=== PATIENT | female | born 1935 | race Caucasian/White ===

== ENCOUNTER 2017-10-16 13:00 | Emergency (ER) | payer MEDICARE ==
--- NOTE | 2017-10-16 13:42 | EDM.PDOC ---
ED HPI GENERAL MEDICAL PROBLEM - General Chief Complaint: Syncope Stated Complaint: SICK SENT FROM [facility] Time Seen by Provider: 10/16/17 13:15 Source of Information: Reports: Patient, Other (Clinic reports) History Limitations: Reports: No Limitations - History of Present Illness INITIAL COMMENTS - FREE TEXT/NARRATIVE: Rita was sent over to the [facility] ED for assessment of a syncopal episode following multiple bouts of emeses about 4 am today. She awoke with nausea, and proceeded to vomit approximately 8 times of yellow colored emeses. There was no BRB or bile detected. She sat on the commode and felt lt headiness and was in and out of consciousness for approximately 5 minutes on the floor. She summoned family who subsequently brought her to the Clinic. Investigation noted a mild leukocyctosis, neg Troponin, neg BMP, and an ekg which noted some ST seg depressions, age unknown. She is currently asx. - Related Data Allergies Allergy/AdvReac Type Severity Reaction Status Date / Time No Known Allergies Allergy Verified 10/16/17 13:04 Home Meds: Home Meds Aspirin [Halfprin] 81 mg PO DAILY 10/16/17 [History] Calcium Carb/Vitamin D3/Vit K1 [Calcium + Vit D & K Chew] 1 each PO DAILY [History] Lisinopril/Hydrochlorothiazide [Lisinopril-Hctz 10-12.5 mg Tab] 1 each PO DAILY 10/16/17 [History] Omeprazole 40 mg PO DAILY 10/16/17 [History] Past Medical History HEENT History: Reports: Impaired Vision Cardiovascular History: Reports: Hypertension Respiratory History: Reports: None Gastrointestinal History: Reports: Pancreatitis 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: Musculoskeletal History: Reports: None Neurological History: Reports: None Psychiatric History: Reports: None Endocrine/Metabolic History: Reports: None Hematologic History: Reports: None Immunologic History: Reports: None Oncologic (Cancer) History: Reports: None Dermatologic History: Reports: None - Past Surgical History Cardiovascular Surgical History: Reports: None Respiratory Surgical History: Reports: None GI Surgical History: Reports: Cholecystectomy, Colonoscopy Female Surgical History: Reports: Section Endocrine Surgical History: Reports: None Musculoskeletal Surgical History: Reports: None Social & Family History - Tobacco Use Smoking Status *Q: Never Smoker - Caffeine Use Caffeine Use: Reports: Coffee - Recreational Drug Use Recreational Drug Use: No ED ROS GENERAL - Review of Systems Review Of Systems: See Below Constitutional: Reports: Decreased Appetite HEENT: Reports: No Symptoms Respiratory: Reports: No Symptoms Cardiovascular: Reports: No Symptoms Endocrine: Reports: No Symptoms GI/Abdominal: Reports: Nausea, Vomiting : Reports: No Symptoms Musculoskeletal: Reports: No Symptoms Skin: Reports: No Symptoms Neurological: Reports: Syncope Psychiatric: Reports: No Symptoms Hematologic/Lymphatic: Reports: No Symptoms Immunologic: Reports: No Symptoms - Physical Exam Exam: See Below Exam Limited By: No Limitations General Appearance: Alert, WD/WN, No Apparent Distress Eye Exam: Bilateral Eye: EOMI, Normal Inspection, PERRL Ears: Normal External Exam Nose: Normal Inspection Throat/Mouth: Normal Inspection, Normal Oropharynx Head Exam: Normocephalic Neck: Normal Inspection, Supple, Non-Tender Respiratory/Chest: Lungs Clear, Normal Breath Sounds, Chest Non-Tender Cardiovascular: Normal Peripheral Pulses, Regular Rate, Rhythm, No Murmur GI/Abdominal: Normal Bowel Sounds, Soft, Non-Tender, No Organomegaly, No Distention, No Mass (Female) Exam: Deferred Rectal (Female) Exam: Deferred Neuro Exam (Abbreviated): Alert, Oriented, CN II-XII Intact, Normal Cognition, No Motor/Sensory Deficits Back Exam: Normal Inspection Extremities: Normal Inspection Psychiatric: Normal Affect, Normal Mood Skin Exam: Warm, Dry, Intact Course - Vital Signs Text/Narrative:: A follow up EKG noted: NSR, no ST changes detected, borderline QT elongation; she was released home. Last Recorded V/S: Last Vital Signs Temp 36.8 C 10/16/17 13:15 Pulse 100 10/16/17 13:15 Resp 17 10/16/17 13:33 BP 127/93 H 10/16/17 13:33 Pulse Ox 99 10/16/17 13:33 - Orders/Labs/Meds Orders: Active Orders 24 hr Category Date Time Status EKG Documentation Completion [RC] ASDIRECTED Care 10/16/17 13:36 Ordered EKG 12 Lead [EK] Routine Ther 10/16/17 13:36 Ordered Departure - Departure Time of Disposition: 13:48 Disposition: Home, Self-Care 01 Condition: Good Clinical Impression: Nausea and vomiting Qualifiers: Vomiting type: unspecified Vomiting Intractability: unspecified Qualified Code( s): R11.2 - Nausea with vomiting, unspecified Syncope Qualifiers: Syncope type: unspecified Qualified Code(s): R55 - Syncope and collapse - Discharge Information Referrals: Mallika Correa, CASE LINER [Primary Care Provider] - - Problem List & Annotations (1) Nausea and vomiting SNOMED Code(s): 85229396 Code(s): R11.2 - NAUSEA WITH VOMITING, UNSPECIFIED Status: Acute Current Visit: Yes Annotation/Comment:: Probable gastritis which is improved. I suggested light diet, hydration, and rest. Qualifiers: Vomiting type: unspecified Vomiting Intractability: unspecified Qualified Code(s): R11.2 - Nausea with vomiting, unspecified (2) Syncope SNOMED Code(s): 436889220 Code(s): R55 - SYNCOPE AND COLLAPSE Status: Acute Current Visit: Yes Annotation/Comment:: Possible vasovagal syncope. She may return home, activty as tolerated, and no driving today. Qualifiers: Syncope type: unspecified Qualified Code(s): R55 - Syncope and collapse - Problem List Review Problem List Initiated/Reviewed/Updated: Yes - My Orders Last 24 Hours: My Active Orders 10/16/17 13:36 EKG Documentation Completion [RC] ASDIRECTED EKG 12 Lead [EK] Routine - Assessment/Plan Last 24 Hours: My Active Orders 10/16/17 13:36 EKG Documentation Completion [RC] ASDIRECTED EKG 12 Lead [EK] Routine Plan: Follow up with PCP if needed.
== END 2017-10-16 14:05 | disposition home or self-care (01) ==
LOC: FB.ED 13:00
DX: R55 Syncope and collapse (principal); R11.2 Nausea with vomiting, unspecified; I10 Essential (primary) hypertension; Z79.82 Long term (current) use of aspirin; Z79.899 Other long term (current) drug therapy
CPT/HCPCS: 93005; 93010; 99284

== ENCOUNTER 2020-03-02 12:59 | Inpatient (IN) | payer MEDICARE ==
--- NOTE | 2020-03-02 13:11 | EDM.PDOC ---
ED HPI GENERAL MEDICAL PROBLEM - General Stated Complaint: ABDOMINAL PAIN Time Seen by Provider: 03/02/20 13:08 Source of Information: Reports: Patient History Limitations: Reports: No Limitations - History of Present Illness INITIAL COMMENTS - FREE TEXT/NARRATIVE: 85-year-old female who reports that she was feeling well until approximately 10 AM today when she developed side of left sided abdominal pain with pain into her left back that was a crampy type pain that was associated with nausea and was worse with palpation. The pain has worsened with time and she has had 5-6 bowel movements since the pain began. The bowel movements initially were performed and have since become loose. There has been no blood in the bowel movements or dark stools. She currently rates the pain as an 8/10. It radiates from her left side of her abdomen into her back. She feels what cold. No fevers. No chills. She ate breakfast this morning without problems. She has had pain somewhat similar to this in the past that was associated with pancreatitis. Chest pain. No shortness of breath. No cough or nasal congestion. No sore throat. She states she had a COVID 19 test performed on Saturday of last week that was negative. There are no other associated signs or symptoms. There are no other modifying factors. 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 (see below) (Nothing) Left Abdomen Pain Score (Numeric/FACES): 8 - Related Data Allergies Allergy/AdvReac Type Severity Reaction Status Date / Time No Known Allergies Allergy Verified 03/02/20 13:22 Home Meds: Home Meds Aspirin [Halfprin] 81 mg PO DAILY 10/16/17 [History] Calcium Carb/Vitamin D3/Vit K1 [Calcium + Vit D & K Chew] 1 each PO DAILY [History] Lisinopril/Hydrochlorothiazide [Lisinopril-Hctz 10-12.5 mg Tab] 1 each PO DAILY 10/16/17 [History] Omeprazole 40 mg PO DAILY 10/16/17 [History] Past Medical History HEENT History: Reports: Impaired Vision Cardiovascular History: Reports: Hypertension Gastrointestinal History: Reports: Pancreatitis - Past Surgical History GI Surgical History: Reports: Cholecystectomy, Colonoscopy Female Surgical History: Reports: Section Endocrine Surgical History: Reports: None Musculoskeletal Surgical History: Reports: None Social & Family History - Tobacco Use Smoking Status *Q: Never Smoker - Caffeine Use Caffeine Use: Reports: Coffee - Alcohol Use Alcohol Use History: No - Living Situation & Occupation Occupation: Retired ED ROS GENERAL - Review of Systems Review Of Systems: See Below Constitutional: Reports: Weakness, Diaphoresis HEENT: Reports: No Symptoms Respiratory: Reports: No Symptoms Cardiovascular: Reports: No Symptoms GI/Abdominal: Reports: Abdominal Pain, Diarrhea, Nausea. Denies: Vomiting Musculoskeletal: Reports: Back Pain (Left back pain) Skin: Reports: Diaphoresis Neurological: Reports: No Symptoms Psychiatric: Reports: No Symptoms Hematologic/Lymphatic: Reports: No Symptoms Immunologic: Reports: No Symptoms ED EXAM, GI/ABD - Physical Exam Exam: See Below Exam Limited By: No Limitations General Appearance: Alert, WD/WN, Moderate Distress Eyes: Bilateral: Normal Appearance (Sclera are anicteric), EOMI Ears: Normal External Exam, Hearing Grossly Normal Nose: Normal Inspection, Normal Mucosa, No Blood Throat/Mouth: Normal Voice, No Airway Compromise, Other (Dry mucous membranes) Head: Atraumatic, Normocephalic Neck: Normal Inspection, Supple, Non-Tender, Full Range of Motion Respiratory/Chest: No Respiratory Distress, Lungs Clear, Normal Breath Sounds, No Accessory Muscle Use, Chest Non-Tender Cardiovascular: Normal Peripheral Pulses, Regular Rate, Rhythm, No Murmur GI/Abdominal Exam: Normal Bowel Sounds, Soft, No Mass, Pelvis Stable, Tender ( Markedly tender over the head and the left lower quadrant and left flank.). No : Rigid Back Exam: Normal Inspection, Other (Tender over the left mid back) Extremities: Normal Inspection, Normal Range of Motion, Non-Tender, No Pedal Edema, Normal Capillary Refill Neurological: Alert, Oriented, CN II-XII Intact, Normal Cognition, No Motor/ Sensory Deficits Skin Exam: Intact, Normal Color, No Rash, Diaphoretic (Slightly) EKG INTERPRETATION EKG Date: 03/02/20 Time: 14:54 Rhythm: NSR Rate (Beats/Min): 72 [place]: Normal P-Wave: Present QRS: Normal ST-T: Normal QT: Normal Comparison: Change From Previous EKG (Compared EKG performed on 10/16/2017, the T -wave abnormalities that were present at that time have resolved and the QT prolongation that was present at that time is no longer present now.) Course - Vital Signs Last Recorded V/S: Last Vital Signs Temp 36.7 C 03/02/20 14:06 Pulse 79 03/02/20 14:06 Resp 18 03/02/20 14:06 BP 146/62 H 03/02/20 14:06 Pulse Ox 100 03/02/20 14:06 - Orders/Labs/Meds Orders: Active Orders 24 hr Category Date Time Status Admission Status [Patient Status] [ADT] Routine ADT 03/02/20 15:44 Ordered Patient Status Manage Transfer [TRANSFER] Routine ADT 03/02/20 15:53 Active Bedrest Bathroom Privileges [RC] ASDIRECTED Care 03/02/20 15:47 Active EKG Documentation Completion [RC] ASDIRECTED Care 03/02/20 14:57 Active Height and Weight [RC] UPON Care 03/02/20 15:47 Active Intake and Output [RC] QSHIFT Care 03/02/20 15:49 Active Oxygen Therapy [RC] PRN Care 03/02/20 15:47 Active Pulse Oximetry [RC] PRN Care 03/02/20 15:49 Active VTE/DVT Education [RC] Per Unit Routine Care 03/02/20 15:47 Active Vital Signs [RC] Q4H Care 03/02/20 15:47 Active Nothing per Oral Now Diet [DIET] Diet 03/02/20 Dinner Ordered Abdomen Pelvis w Cont [CT] Stat Exams 03/02/20 14:33 Taken UA W/MICROSCOPIC [URIN] Stat Lab 03/02/20 13:23 Ordered Ciprofloxacin in D5W [Cipro in D5W 400 MG/200 ML] 400 Med 03/02/20 16:00 Ordered mg Premix Bag 1 bag IV Q12HR HYDROmorphone [Dilaudid] Med 03/02/20 15:47 Ordered 0.5 mg IVPUSH Q2H PRN Ondansetron [Zofran] Med 03/02/20 15:47 Ordered 4 mg IV Q6H PRN Sodium Chloride 0.9% [Normal Saline] 1,000 ml Med 03/02/20 13:30 Active IV ASDIRECTED Sodium Chloride 0.9% [Saline Flush] Med 03/02/20 13:23 Active 10 ml FLUSH ASDIRECTED PRN metroNIDAZOLE/Normal Saline [Flagyl 500 MG in NS 100 ML Med 03/02/20 16:00 Ordered ] 500 mg Premix Bag 1 bag IV Q12H Peripheral IV Insertion Adult [OM.PC] Routine Oth 03/02/20 13:23 Ordered Resuscitation Status Routine Resus Stat 03/02/20 15:47 Ordered EKG 12 Lead [EK] Routine Ther 03/02/20 14:50 Ordered Medication Orders Hydromorphone HCl (Dilaudid) 0.5 mg IVPUSH Q2H PRN PRN Reason: Pain (severe 7-10) Sodium Chloride (Normal Saline) 1,000 mls @ 125 mls/hr IV ASDIRECTED MIGEL Last Infusion: 03/02/20 14:40 Dose: 999 mls/hr Admin: 03/02/20 14:10 Dose: 125 mls/hr Ciprofloxacin/Dextrose 400 mg/ (Premix) 200 mls @ 200 mls/hr IV Q12HR MIGEL Metronidazole 500 mg/ Premix 100 mls @ 100 mls/hr IV Q12H MIGEL Ondansetron HCl (Zofran) 4 mg IV Q6H PRN PRN Reason: Nausea/Vomiting Sodium Chloride (Saline Flush) 10 ml FLUSH ASDIRECTED PRN PRN Reason: Keep Vein Open Last Admin: 03/02/20 13:49 Dose: 10 ml Labs: Laboratory Tests 03/02/20 03/02/20 03/02/20 Range/Units 13:25 13:25 13:25 WBC 13.6 H (4.5-12.0) X10-3/uL RBC 3.86 (3.23-5.20) x10(6)uL Hgb 12.4 (11.5-15.5) g/dL Hct 35.8 (30.0-51.3) % MCV 92.7 (80-96) fL MCH 32.0 (27.7-33.6) pg MCHC 34.6 (32.2-35.4) g/dL RDW 11.8 (11.5-15.5) % Plt Count 302 (125-369) X10(3)uL MPV 6.8 L (7.4-10.4) fL Add Manual Diff Yes Neutrophils % (Manual) 87 H (46-82) % Band Neutrophils % 5 (0-6) % Lymphocytes % (Manual) 4 L (13-37) % Monocytes % (Manual) 3 L (4-12) % Eosinophils % (Manual) 1 (0-5) % Sodium 138 (135-145) mmol/L Potassium 3.7 (3.5-5.3) mmol/L Chloride 102 (100-110) mmol/L Carbon Dioxide 25 (21-32) mmol/L BUN 22 H (7-18) mg/dL Creatinine 1.0 (0.55-1.02) mg/dL Est Cr Clr Drug Dosing 37.10 mL/min Estimated GFR (MDRD) 52 L (>60) BUN/Creatinine Ratio 22.0 H (9-20) Glucose 112 (80-116) mg/dL Calcium 9.2 (8.6-10.2) mg/dL Total Bilirubin 1.0 (0.1-1.3) mg/dL AST 20 (5-25) IU/L ALT 25 (12-36) U/L Alkaline Phosphatase 85 (56-112) IU/L Troponin I (4.0-60.3) pg/mL C-Reactive Protein < 0.2 L (0.5-0.9) mg/dL Total Protein 7.9 (6.0-8.0) g/dL Albumin 4.3 (3.2-4.6) g/dL Globulin 3.6 g/dL Albumin/Globulin Ratio 1.2 Lipase 93 (73-393) U/L // Range/Units 13:25 WBC (4.5-12.0) X10-3/uL RBC (3.23-5.20) x10(6)uL Hgb (11.5-15.5) g/dL Hct (30.0-51.3) % MCV (80-96) fL MCH (27.7-33.6) pg MCHC (32.2-35.4) g/dL RDW (11.5-15.5) % Plt Count (125-369) X10(3)uL MPV (7.4-10.4) fL Add Manual Diff Neutrophils % (Manual) (46-82) % Band Neutrophils % (0-6) % Lymphocytes % (Manual) (13-37) % Monocytes % (Manual) (4-12) % Eosinophils % (Manual) (0-5) % Sodium (135-145) mmol/L Potassium (3.5-5.3) mmol/L Chloride (100-110) mmol/L Carbon Dioxide (21-32) mmol/L BUN (7-18) mg/dL Creatinine (0.55-1.02) mg/dL Est Cr Clr Drug Dosing mL/min Estimated GFR (MDRD) (>60) BUN/Creatinine Ratio (9-20) Glucose (80-116) mg/dL Calcium (8.6-10.2) mg/dL Total Bilirubin (0.1-1.3) mg/dL AST (5-25) IU/L ALT (12-36) U/L Alkaline Phosphatase (56-112) IU/L Troponin I 5.4 (4.0-60.3) pg/mL C-Reactive Protein (0.5-0.9) mg/dL Total Protein (6.0-8.0) g/dL Albumin (3.2-4.6) g/dL Globulin g/dL Albumin/Globulin Ratio Lipase (73-393) U/L Meds: Medications Generic Name Dose Route Start Last Admin Trade Name Freq PRN Reason Stop Dose Admin Hydromorphone HCl 0.5 mg 03/02/20 15:47 Dilaudid IVPUSH Q2H PRN Pain (severe 7-10) Sodium Chloride 1,000 mls @ 125 mls/hr 03/02/20 13:30 03/02/20 14:40 Normal Saline IV 999 mls/hr ASDIRECTED MIGEL Infusion Ciprofloxacin/Dextrose 400 mg/ 200 mls @ 200 mls/hr 03/02/20 16:00 Premix IV Q12HR MIGEL Metronidazole 500 mg/ Premix 100 mls @ 100 mls/hr 03/02/20 16:00 IV Q12H MIGEL Ondansetron HCl 4 mg 03/02/20 15:47 Zofran IV Q6H PRN Nausea/Vomiting Sodium Chloride 10 ml 03/02/20 13:23 03/02/20 13:49 Saline Flush FLUSH 10 ml ASDIRECTED PRN Administration Keep Vein Open Discontinued Medications Generic Name Dose Route Start Last Admin Trade Name Adan PRN Reason Stop Dose Admin Hydromorphone HCl 0.5 mg 03/02/20 14:40 03/02/20 14:53 Dilaudid IVPUSH 03/02/20 14:41 0.5 mg ONETIME ONE Administration Sodium Chloride 500 mls @ 999 mls/hr 03/02/20 13:24 03/02/20 13:31 Normal Saline IV 03/02/20 13:54 999 mls/hr .BOLUS ONE Administration Sodium Chloride 500 mls @ 999 mls/hr 03/02/20 14:32 03/02/20 15:16 Normal Saline IV 03/02/20 15:02 Not Given .BOLUS ONE Iopamidol 100 ml 03/02/20 15:04 03/02/20 15:11 Isovue-370 (76%) IV 03/02/20 15:05 75 ml . DIRECTED ONE Administration Morphine Sulfate 4 mg 03/02/20 13:24 03/02/20 13:36 Morphine IVPUSH 03/02/20 13:25 4 mg ONETIME ONE Administration Ondansetron HCl 4 mg 03/02/20 13:24 03/02/20 13:36 Zofran IVPUSH 03/02/20 13:25 4 mg ONETIME ONE Administration - Radiology Interpretation Free Text/Narrative:: CT scan of abdomen and pelvis showed evidence of left-sided colitis. There was diffuse atherosclerotic changes throughout all of the abdominal mass which are but no other acute abnormalities were seen per the radiologist. - Re-Assessments/Exams Free Text/Narrative Re-Assessment/Exam: 03/02/20 14:45: Patient with sharp increase in pain that is on the left side and then going across her entire upper abdomen and into her back. She rated the pain as a 10/10 at this time. I have ordered Dilaudid 0.5 mg IV to be given. Also ordered an EKG to be performed and I added a troponin to her labs. She is just now going over for CT of her abdomen and pelvis. 03/02/20 15:25: ET scan of the abdomen and pelvis showed colitis. The patient has remained vitally stable and after the Dilaudid her pain came down to about a 3/10 and she feels much improved. He has fairly exquisite tenderness along her abdomen but the abdomen remains soft and there is no rigidity and she has bowel sounds present. I discussed this with the patient and also with the patient's daughter, Jovan at the patient's request the patient will need admission for IV fluids, IV pain medication and IV antibiotics. Both the patient and the daughter are comfortable with the patient being admitted to this facility and I will call and discuss patient's case with Dr. Montilla. 03/02/20 16:40: Scuffs patient's case with Dr. Montilla. He will admit the patient. I will place interim admission orders and he will be seeing the patient afternoon. The patient is in agreement with the plan for admission. I did discuss CODE STATUS with the patient and the patient wishes to be a FULL CODE. Departure - Departure Time of Disposition: 16:00 Disposition: Admitted As Inpatient 64 Condition: Fair (Improved, stable) Clinical Impression: Colitis, Uncontrolled pain - Discharge Information Referrals: PCP,None [Ordering Only Provider] - Sepsis Event Note - Focused Exam Vital Signs: Vital Signs Temp Pulse Resp BP Pulse Ox 03/02/20 14:06 36.7 C 79 18 146/62 H 100 03/02/20 13:10 36.5 C 80 18 157/85 H 99 Date Exam was Performed: 03/02/20 Time Exam was Performed: 15:55 - My Orders Last 24 Hours: My Active Orders 03/02/20 13:23 UA W/MICROSCOPIC [URIN] Stat Sodium Chloride 0.9% [Saline Flush] 10 ml FLUSH ASDIRECTED PRN Peripheral IV Insertion Adult [OM.PC] Routine 03/02/20 13:30 Sodium Chloride 0.9% [Normal Saline] 1,000 ml IV ASDIRECTED 03/02/20 14:33 Abdomen Pelvis w Cont [CT] Stat 03/02/20 14:50 EKG 12 Lead [EK] Routine 03/02/20 14:57 EKG Documentation Completion [RC] ASDIRECTED 03/02/20 15:44 Admission Status [Patient Status] [ADT] Routine 03/02/20 15:47 Bedrest Bathroom Privileges [RC] ASDIRECTED Height and Weight [RC] UPON Oxygen Therapy [RC] PRN VTE/DVT Education [RC] Per Unit Routine Vital Signs [RC] Q4H HYDROmorphone [Dilaudid] 0.5 mg IVPUSH Q2H PRN Ondansetron [Zofran] 4 mg IV Q6H PRN Resuscitation Status Routine 03/02/20 15:49 Intake and Output [RC] QSHIFT Pulse Oximetry [RC] PRN 03/02/20 15:53 Patient Status Manage Transfer [TRANSFER] Routine 03/02/20 16:00 Ciprofloxacin in D5W [Cipro in D5W 400 MG/200 ML] 400 mg Premix Bag 1 bag IV Q12HR metroNIDAZOLE/Normal Saline [Flagyl 500 MG in NS 100 ML] 500 mg Premix Bag 1 bag IV Q12H 03/02/20 Dinner Nothing per Oral Now Diet [DIET] - Assessment/Plan Last 24 Hours: My Active Orders 03/02/20 13:23 UA W/MICROSCOPIC [URIN] Stat Sodium Chloride 0.9% [Saline Flush] 10 ml FLUSH ASDIRECTED PRN Peripheral IV Insertion Adult [OM.PC] Routine 03/02/20 13:30 Sodium Chloride 0.9% [Normal Saline] 1,000 ml IV ASDIRECTED 03/02/20 14:33 Abdomen Pelvis w Cont [CT] Stat 03/02/20 14:50 EKG 12 Lead [EK] Routine 03/02/20 14:57 EKG Documentation Completion [RC] ASDIRECTED 03/02/20 15:44 Admission Status [Patient Status] [ADT] Routine 03/02/20 15:47 Bedrest Bathroom Privileges [RC] ASDIRECTED Height and Weight [RC] UPON Oxygen Therapy [RC] PRN VTE/DVT Education [RC] Per Unit Routine Vital Signs [RC] Q4H HYDROmorphone [Dilaudid] 0.5 mg IVPUSH Q2H PRN Ondansetron [Zofran] 4 mg IV Q6H PRN Resuscitation Status Routine 03/02/20 15:49 Intake and Output [RC] QSHIFT Pulse Oximetry [RC] PRN 03/02/20 15:53 Patient Status Manage Transfer [TRANSFER] Routine 03/02/20 16:00 Ciprofloxacin in D5W [Cipro in D5W 400 MG/200 ML] 400 mg Premix Bag 1 bag IV Q12HR metroNIDAZOLE/Normal Saline [Flagyl 500 MG in NS 100 ML] 500 mg Premix Bag 1 bag IV Q12H 03/02/20 Dinner Nothing per Oral Now Diet [DIET]
[2020-03-02] MEDS ORDERED: Sodium Chloride 0.9% 500 ML IV ONE ×2 (13:24→14:32)
[2020-03-02] MEDS ORDERED: Ondansetron 4 MG/2 ML SDV IVPUSH ONE (13:24)
[2020-03-02] MEDS ORDERED: Morphine 2 MG/ML Syringe IVPUSH ONE (13:24)
[2020-03-02] MEDS: Sodium Chloride 0.9% 10 ML Syringe FLUSH PRN ×3 (13:49→20:03)
[2020-03-02] MEDS: Sodium Chloride 0.9% 1,000 ML IV SCH ×2 (14:10→20:39)
[2020-03-02] MEDS ORDERED: HYDROmorphone 2 MG/ML SDV IVPUSH ONE (14:40)
[2020-03-02] MEDS ORDERED: Iopamidol 755 Mg/ML 100 ML Bottle IV ONE (15:04)
[2020-03-02] MEDS ORDERED: HYDROmorphone 2 MG/ML SDV IVPUSH PRN (15:47)
[2020-03-02] MEDS: Ciprofloxacin in D5W 400 MG in Premix Bag 1 BAG IV SCH ×2 (17:07)
--- NOTE | 2020-03-02 17:22 | CT ---
INDICATION: Severe left-sided abdominal pain with diarrhea. Elevated white count. COMPUTERIZED TOMOGRAPHY OF THE ABDOMEN AND PELVIS WITH CONTRAST: Spiral 3.75 mm axial sections were obtained through the abdomen and pelvis with 75 mL Isovue -370 at 1.8 cc/second with sagittal and coronal reconstructions 03/02/20 and compared with 08/07/19. There is some minimal fibrotic-appearing change at the lingula and to a greater extent at the middle lobe and also to a mild extent, at both lower lobes, especially the right without a definite active infiltrate or effusion. The heart was normal in size. No pericardial effusion was seen. The liver showed evidence of cholecystectomy. It was otherwise unremarkable. The spleen, adrenal glands, pancreas, common bile duct, and kidneys showed no gross abnormalities. No retroperitoneal mass was seen. Extensive calcifications are noted in the abdominal aorta. No evidence of dilatation of the aorta was seen. Calcifications are also noted at the origin of the right renal artery and the left renal artery, superior mesenteric artery , iliac and right femoral artery. Sigmoid diverticulosis is noted without definite evidence of diverticulitis. There is an appearance of pericolonic fat stranding surrounding the descending colon with suggestion of some thickening of the wall, raising question of colitis. There is fat stranding and possibly some minimal fluid in the paracolic gutter, suggesting some peritonitis in that area. No evidence of free air or bowel obstruction was seen. No organomegaly, mass lesions or free fluid collections were identified otherwise in the abdomen or pelvis. No evidence of hernia was identified. The appendix appeared normal in caliber, visualized on axial images 76-80 in the anterior right upper middle pelvis inferior to the cecum. IMPRESSION: 1. Colitis with probable peritonitis involving the descending colon. 2. Sigmoid diverticulosis without evidence of diverticulitis. 3. ASD. 4. Postcholecystectomy. 5. Degenerative changes, disk disease, scoliosis lumbar spine. 6. Sacral cystic mass appears fairly stable, seen previously and extending into the posterior left pelvic soft tissue from the left sacral ala, but crosses the midline to the right sacral ala with the right apparent sacral meningeal cyst extending posteriorly into the parasacral soft tissues in a similar fashion to the previous study. Report was called to Dr. Najera at 1523 hours. [facility]
[2020-03-02] MEDS: metroNIDAZOLE/Normal Saline 500 MG in Premix Bag 1 BAG IV SCH (18:23)
[2020-03-02] MEDS: Ondansetron 4 MG/2 ML SDV IVPUSH PRN (20:02)
[2020-03-03] MEDS: Ciprofloxacin in D5W 400 MG in Premix Bag 1 BAG IV SCH ×4 (03:31→16:00)
[2020-03-03] MEDS: metroNIDAZOLE/Normal Saline 500 MG in Premix Bag 1 BAG IV SCH (04:39)
[2020-03-03] MEDS: Ondansetron 4 MG/2 ML SDV IVPUSH PRN (05:05)
[2020-03-03] MEDS: Sodium Chloride 0.9% 10 ML Syringe FLUSH PRN (05:05)
[2020-03-03] MEDS: Sodium Chloride 0.9% 1,000 ML IV SCH (06:04)
[2020-03-03] MEDS ORDERED: Sodium Chloride 0.9% 1,000 ML IV SCH (10:15)
--- NOTE | 2020-03-03 11:52 | PN ---
DATE SEEN: 03/03/2020 SUBJECTIVE: Rita Edwards is an 85-year-old female, delightfully youthful, was admitted with complicated left-sided abdominal pain. It was 6 to 8 out of 10, now a 2. Has had no stools since admission. She has been on ice chips and of course reluctant to eat. Feeling much better, afebrile. Laboratory studies reviewed. OBJECTIVE: VITAL SIGNS: 36.2, 62, 134/59, 18 is the respirations, 99%. GENERAL: Appears comfortable. NECK: Benign. Thyroid small. CHEST: On auscultation, clear in all lung ramirez. HEART: On auscultation, no ectopy or murmur. ABDOMEN: Much less tender left-sided descending colon. ASSESSMENT: Acute colitis. PLAN: Medications on board, Cipro and metronidazole, complementary care and well being. We will allow full liquids, advance as tolerated. /[id number] VALERIO/JESSICA FAYE
--- NOTE | 2020-03-03 11:52 | HP ---
ADMISSION DATE: 03/02/2020 CHIEF COMPLAINT: Complicated abdominal pain and diarrhea. HISTORY OF PRESENT ILLNESS: Rita Edwards is an 85-year-old female from [place], [place], who was seen at [facility] ER by Dr. Najera. Awakened this morning, comfortable. Planned to have a normal day, packing to go to the [place]. Had acute onset of severe crampy abdominal pain, left sided, into her left flank. Five to six watery loose stools. Pain and discomfort. Cramps come and go. No blood in stool. No mucusy membranes. On a scale of 1 to 10, at a 10. She has had a previous cholecystectomy. No contacts. No travel outside the area. Has otherwise been in good health. DAILY MEDICATIONS: Include: 1. 81 mg baby aspirin. 2. Calcium, vitamin D, vitamin K 1 daily nutrition. 3. Lisinopril/HCTZ 07/18.5, one p.o. daily. 4. Omeprazole 40 mg 1 p.o. daily, GERD. PAST HEALTH: Remarkably healthy. She has had a previous cholecystectomy, 1 section. 5, para 5, postmenopausal female. Treated hypertension. No other operative procedures, hospitalizations, unusual childhood diseases, major injuries, or fractures. SOCIAL HISTORY: [place] resident. . Five children, 4 sons, 1 daughter. Eighteen grandkids, 12 great grandkids. Worked in [employer] prior to her fdc. Nonsmoker. No vaping. No chewing. No alcohol. No illicit drug use. FAMILY HISTORY: Negative for early heart disease, diabetes mellitus, or inheritable cancers. REVIEW OF SYSTEMS: CONSTITUTIONAL: Feeling poorly today. EYES: Sees well. EARS: Hears well. Oropharynx intact. Dentition, daily care. CARDIOVASCULAR: No chest pain, palpitations, syncope. RESPIRATORY: No chronic cough, congestion, and shortness of breath. GASTROINTESTINAL: Please see HPI. GENITOURINARY: Voiding comfortably. SKIN: No lesions, eruptions, or moles. ENDOCRINE: No excessive thirst or urination. NEUROLOGIC: Denies headache, blurred vision, weakness, or tremors. ORTHOPEDIC: Few joint complaints. PSYCHIATRIC: Mood stable. PHYSICAL EXAMINATION: VITAL SIGNS: 36.2, 56, 112/57, 16, 97% on room air. GENERAL: Appears more comfortable when I saw her late afternoon on 03/02. No stools. Nausea and pain persists. HEENT: Funduscopic benign. Conjunctivae clear. Bright tympanic membranes. Clear nasal discharge. Mouth and oropharynx clear. Good dentition. Tongue midline. Good gag reflex. No intraoral lesions. NECK: Benign. Thyroid small. CHEST: On auscultation, clear all lung ramirez. HEART: On auscultation, no ectopy or murmur. BREASTS: Deferred. ABDOMEN: Benign. Lower abdominal midline scar. Right upper quadrant cholecystectomy scar. No hepatosplenomegaly. Acutely tender over the entire descending and proximal sigmoid colon. RECTAL: Declined and deferred. EXTREMITIES: Well perfused. NEUROMUSCULAR: Intact. LABORATORY STUDIES: White count 13,600, hemoglobin 12.4. Electrolytes satisfactory. BUN 22, creatinine 1.0, GFR 52. C-reactive protein less than 0.2. Lipase 93. Liver enzymes unremarkable. Urinalysis noted ketonuria, but no other pathology. DIAGNOSTIC DATA: CT of the abdomen interpreted by Dr. 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 ASSESSMENT: Complicated left-sided abdominal pain, colitis, inflammatory. PLAN: Admission to hospital indicated. Placed on ciprofloxacin and metronidazole. Complementary care and well being. Analgesics and n.p.o. status. /[id number] VALERIO/JESSICA FAYE
[2020-03-03] MEDS ORDERED: metroNIDAZOLE/Normal Saline 100 ML IV SCH (13:00)
--- NOTE | 2020-03-04 08:25 | PCM.PN ---
- General Info Date of Service: 03/04/20 Admission Dx/Problem (Free Text): Patient complains today. She says her left lower quadrant abdominal pain is gone. She has had a BM in a couple days. She has some diarrhea before this. She denies history of any ulcerative colitis or Crohn's disease. She's not had a colonoscopy in a long time she states. She states after all she's 85. She denies fevers, chills, nausea, vomiting. - Patient Data Vitals - Most Recent: Last Vital Signs Temp 98.1 F 03/04/20 03:00 Pulse 82 03/04/20 03:00 Resp 18 03/04/20 03:00 BP 147/76 H 03/04/20 03:00 Pulse Ox 98 03/04/20 03:00 Weight - Most Recent: 159 lb 1.6 oz I&O - Last 24 Hours: Intake & Output 03/03/20 03/04/20 03/04/20 22:59 06:59 14:59 Intake Total 650 Balance 650 Med Orders - Current: Current Medications Hydromorphone HCl (Dilaudid) 0.5 mg IVPUSH Q2H PRN PRN Reason: Pain (severe 7-10) Last Admin: 03/02/20 18:52 Dose: 0.5 mg Ondansetron HCl (Zofran) 4 mg IVPUSH Q6H PRN PRN Reason: Nausea/Vomiting Last Admin: 03/03/20 05:05 Dose: 4 mg Sodium Chloride (Saline Flush) 10 ml FLUSH ASDIRECTED PRN PRN Reason: Keep Vein Open Last Admin: 03/03/20 05:05 Dose: 10 ml Discontinued Medications Hydromorphone HCl (Dilaudid) 0.5 mg IVPUSH ONETIME ONE Stop: 03/02/20 14:41 Last Admin: 03/02/20 14:53 Dose: 0.5 mg Sodium Chloride (Normal Saline) 500 mls @ 999 mls/hr IV .BOLUS ONE Stop: 03/02/20 13:54 Last Admin: 03/02/20 13:31 Dose: 999 mls/hr Sodium Chloride (Normal Saline) 1,000 mls @ 125 mls/hr IV ASDIRECTED MIGEL Last Infusion: 03/03/20 10:10 Dose: 75 mls/hr Sodium Chloride (Normal Saline) 500 mls @ 999 mls/hr IV .BOLUS ONE Stop: 03/02/20 15:02 Last Admin: 03/02/20 15:16 Dose: Not Given Ciprofloxacin/Dextrose 400 mg/ (Premix) 200 mls @ 200 mls/hr IV Q12H [facility] Last Admin: 03/03/20 16:00 Dose: 200 mls/hr Metronidazole 500 mg/ Premix 100 mls @ 100 mls/hr IV Q12H [facility] Last Admin: 03/03/20 04:39 Dose: 100 mls/hr Metronidazole (Flagyl 500 Mg In Ns 100 Ml) 100 mls @ 100 mls/hr IV Q8H [facility] Last Admin: 03/03/20 12:59 Dose: 100 mls/hr Sodium Chloride (Normal Saline) 1,000 mls @ 75 mls/hr IV ASDIRECTED [facility] Iopamidol (Isovue-370 (76%)) 100 ml IV . DIRECTED ONE Stop: 03/02/20 15:05 Last Admin: 03/02/20 15:11 Dose: 75 ml Morphine Sulfate (Morphine) 4 mg IVPUSH ONETIME ONE Stop: 03/02/20 13:25 Last Admin: 03/02/20 13:36 Dose: 4 mg Ondansetron HCl (Zofran) 4 mg IVPUSH ONETIME ONE Stop: 03/02/20 13:25 Last Admin: 03/02/20 13:36 Dose: 4 mg - Exam General: Alert, Oriented, Cooperative Lungs: Normal Respiratory Effort GI/Abdominal Exam: Normal Bowel Sounds, Soft, Non-Tender, No Distention, No Abnormal Bruit, No Mass Extremities: No Pedal Edema Psy/Mental Status: Alert, Normal Affect, Normal Mood Sepsis Event Note - Evaluation Sepsis Screening Result: No Definite Risk - Focused Exam Vital Signs: Vital Signs Temp Pulse Resp BP Pulse Ox 03/04/20 03:00 98.1 F 82 18 147/76 H 98 03/04/20 00:00 18 Date Exam was Performed: 03/04/20 Time Exam was Performed: 08:24 - Problem List & Annotations (1) Diverticulitis SNOMED Code(s): 899110843 Code(s): K57.92 - DVTRCLI OF INTEST, PART UNSP, W/O PERF OR ABSCESS W/O BLEED Status: Acute Current Visit: Yes - Problem List Review Problem List Initiated/Reviewed/Updated: Yes - Plan Plan:: Discharge to home on Augmentin 500 mg 3 times a day for [address] Ross in 1 week. Diet regular as tolerated
--- NOTE | 2020-03-04 08:36 | PCM.DCSUM1 ---
Discharge Summary - Hospital Course Free Text/Narrative:: Hospital course-she was started on Flagyl and Cipro IV. CAT scan showed some colitis in the descending colon. She had diverticulosis with no diverticulitis according to the CAT scan. She had a sacral cystic mass it was there before. She was treated with 2 antibiotics and improved significantly. On the day of discharge had no fevers, chills, diarrhea, abdominal pain. White count was elevated when she came in. Even though the CAT scan is negative for diverticulitis I think that so she has diverticulitis and put her on Augmentin and sent her home. She could have had a gastroenteritis that could've caused this. Her primary provider could consider doing a sigmoidoscopy if her interpatient want to proceed. Brief History: 85-year-old female patient that had acute onset of left lower quadrant abdominal pain radiating to her left back. She had 4-5 day history of loose stools. She said she felt cold but denied fevers. No nausea or vomiting. She was seen in the ER and admitted. Diagnosis: Stroke: No - Discharge Data Discharge Date: 03/04/20 Discharge Disposition: Home, Self-Care 01 Condition: Good - Referral to Home Health Primary Care Physician: Ara Ross MD - Discharge Diagnosis/Problem(s) (1) Diverticulitis SNOMED Code(s): 796649001 ICD Code: K57.92 - DVTRCLI OF INTEST, PART UNSP, W/O PERF OR ABSCESS W/O BLEED Status: Acute Current Visit: Yes - Patient Instructions Diet: Regular Diet as Tolerated Activity: As Tolerated Driving: May Drive Today Showering/Bathing: May Shower Notify Provider of: Fever, Increased Pain, Nausea and/or Vomiting Other/Special Instructions: 1. Recheck with Dr. Ross in 1 week. Consider sigmoidoscopy depending on what primary provider decides. - Discharge Plan Prescriptions/Med Rec: Amoxicillin/Clavulanate K [Augmentin 500-125 MG] 1 tab PO TID #21 tab Home Medications: Home Meds Aspirin [Halfprin] 81 mg PO DAILY 10/16/17 [History] Calcium Carb/Vitamin D3/Vit K1 [Calcium + Vit D & K Chew] 1 each PO DAILY [History] Losartan/Hydrochlorothiazide [Losartan-HCTZ 100-12.5 MG] 1 tab PO BEDTIME [History] Omeprazole 20 mg PO ACBREAKFAST 03/03/20 [History] Oxybutynin [Oxybutynin ER] 5 mg PO DAILY 03/03/20 [History] Amoxicillin/Clavulanate K [Augmentin 500-125 MG] 1 tab PO TID #21 tab 03/04/20 [ Rx] Patient Handouts: Colitis, Fall Prevention in Hospitals, Adult, Venous Thromboembolism Prevention Forms: ED Department Discharge Referrals: PCP,None [Ordering Only Provider] - - Discharge Summary/Plan Comment DC Time >30 min.: No - Patient Data Vitals - Most Recent: Last Vital Signs Temp 98.1 F 03/04/20 03:00 Pulse 82 03/04/20 03:00 Resp 18 03/04/20 03:00 BP 147/76 H 03/04/20 03:00 Pulse Ox 98 03/04/20 03:00 Weight - Most Recent: 159 lb 1.6 oz I&O - Last 24 hours: Intake & Output 03/03/20 03/04/20 03/04/20 22:59 06:59 14:59 Intake Total 650 Balance 650 Med Orders - Current: Current Medications Hydromorphone HCl (Dilaudid) 0.5 mg IVPUSH Q2H PRN PRN Reason: Pain (severe 7-10) Last Admin: 03/02/20 18:52 Dose: 0.5 mg Ondansetron HCl (Zofran) 4 mg IVPUSH Q6H PRN PRN Reason: Nausea/Vomiting Last Admin: 03/03/20 05:05 Dose: 4 mg Sodium Chloride (Saline Flush) 10 ml FLUSH ASDIRECTED PRN PRN Reason: Keep Vein Open Last Admin: 03/03/20 05:05 Dose: 10 ml Discontinued Medications Hydromorphone HCl (Dilaudid) 0.5 mg IVPUSH ONETIME ONE Stop: 03/02/20 14:41 Last Admin: 03/02/20 14:53 Dose: 0.5 mg Sodium Chloride (Normal Saline) 500 mls @ 999 mls/hr IV .BOLUS ONE Stop: 03/02/20 13:54 Last Admin: 03/02/20 13:31 Dose: 999 mls/hr Sodium Chloride (Normal Saline) 1,000 mls @ 125 mls/hr IV ASDIRECTED MIGEL Last Infusion: 03/03/20 10:10 Dose: 75 mls/hr Sodium Chloride (Normal Saline) 500 mls @ 999 mls/hr IV .BOLUS ONE Stop: 03/02/20 15:02 Last Admin: 03/02/20 15:16 Dose: Not Given Ciprofloxacin/Dextrose 400 mg/ (Premix) 200 mls @ 200 mls/hr IV Q12H [facility] Last Admin: 03/03/20 16:00 Dose: 200 mls/hr Metronidazole 500 mg/ Premix 100 mls @ 100 mls/hr IV Q12H [facility] Last Admin: 03/03/20 04:39 Dose: 100 mls/hr Metronidazole (Flagyl 500 Mg In Ns 100 Ml) 100 mls @ 100 mls/hr IV Q8H [facility] Last Admin: 03/03/20 12:59 Dose: 100 mls/hr Sodium Chloride (Normal Saline) 1,000 mls @ 75 mls/hr IV ASDIRECTED [facility] Iopamidol (Isovue-370 (76%)) 100 ml IV . DIRECTED ONE Stop: 03/02/20 15:05 Last Admin: 03/02/20 15:11 Dose: 75 ml Morphine Sulfate (Morphine) 4 mg IVPUSH ONETIME ONE Stop: 03/02/20 13:25 Last Admin: 03/02/20 13:36 Dose: 4 mg Ondansetron HCl (Zofran) 4 mg IVPUSH ONETIME ONE Stop: 03/02/20 13:25 Last Admin: 03/02/20 13:36 Dose: 4 mg
== END 2020-03-04 12:04 | disposition home or self-care (01) | DRG 392 ==
LOC: FB.ED 12:59 → FB.MS 15:44 → UNDOADMIN 15:44
PROVIDERS: ADMIT Emergency Medicine; ATTEND Family Medicine
DX: K52.9 Noninfective gastroenteritis and colitis, unspecified (principal); H54.7 Unspecified visual loss; K57.92 Diverticulitis of intestine, part unspecified, without perforation or abscess without bleeding; I10 Essential (primary) hypertension; Z87.448 Personal history of other diseases of urinary system; Z90.49 Acquired absence of other specified parts of digestive tract; Z79.82 Long term (current) use of aspirin; Z79.899 Other long term (current) drug therapy
CPT/HCPCS: 36415; 74177; 80053; 81001; 83690; 84484; 85025; 86140; 93005; 96361; 96374; 96375; 99285-25; J0744; J1170; J2270; J2405; J3490; J7030; J7040; Q9967

== ENCOUNTER 2020-09-30 10:15 | Emergency (ER) | payer MEDICARE ==
--- NOTE | 2020-09-30 12:05 | EDM.PDOC ---
ED HPI GENERAL MEDICAL PROBLEM - General Chief Complaint: General Stated Complaint: POSSIBLE COVID??? Time Seen by Provider: 09/30/20 12:03 Source of Information: Reports: Patient History Limitations: Reports: No Limitations - History of Present Illness INITIAL COMMENTS - FREE TEXT/NARRATIVE: Rita has uri symptoms ,fatigue,headache,and wants a Rapid COVID test.No SOB - Related Data Allergies Allergy/AdvReac Type Severity Reaction Status Date / Time No Known Allergies Allergy Verified 09/30/20 12:02 Home Meds: Home Meds Aspirin [Halfprin] 81 mg PO DAILY 10/16/17 [History] Calcium Carb/Vitamin D3/Vit K1 [Calcium + Vit D & K Chew] 1 each PO DAILY 10/16/17 [History] Losartan/Hydrochlorothiazide [Losartan-HCTZ 100-12.5 MG] 1 tab PO BEDTIME 03/03/20 [History] Omeprazole 20 mg PO ACBREAKFAST 03/03/20 [History] Oxybutynin [Oxybutynin ER] 5 mg PO DAILY 03/03/20 [History] Amoxicillin/Clavulanate K [Augmentin 500-125 MG] 1 tab PO TID #21 tab 03/04/20 [Rx] Past Medical History HEENT History: Reports: Impaired Vision Cardiovascular History: Reports: Hypertension Respiratory History: Reports: None Gastrointestinal History: Reports: Pancreatitis Genitourinary History: Reports: None 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: Musculoskeletal History: Reports: Back Pain, Chronic Neurological History: Reports: None Psychiatric History: Reports: None Endocrine/Metabolic History: Reports: None Hematologic History: Reports: None Immunologic History: Reports: None Oncologic (Cancer) History: Reports: None Dermatologic History: Reports: None - Infectious Disease History Infectious Disease History: Reports: None - Past Surgical History Respiratory Surgical History: Reports: None GI Surgical History: Reports: Cholecystectomy, Colonoscopy Female Surgical History: Reports: Section Endocrine Surgical History: Reports: None Musculoskeletal Surgical History: Reports: None Social & Family History - Family History Family Medical History: No Pertinent Family History - Caffeine Use Caffeine Use: Reports: Coffee - Living Situation & Occupation Occupation: Retired ED ROS GENERAL - Review of Systems Review Of Systems: Comprehensive ROS is negative, except as noted in HPI. ED EXAM, GENERAL - Physical Exam Exam: See Below Exam Limited By: No Limitations General Appearance: Alert, WD/WN, No Apparent Distress Course - Orders/Labs/Meds Orders: Active Orders 24 hr Category Date Time Status BASIC METABOLIC PANEL,BMP [CHEM] Stat Lab 09/30/20 10:41 Ordered CBC WITH AUTO DIFF [HEME] Stat Lab 09/30/20 10:41 Ordered TROPONIN I [CHEM] Stat Lab 09/30/20 10:42 Ordered UA W/MICROSCOPIC [URIN] Stat Lab 09/30/20 10:42 Ordered Labs: Laboratory Tests 09/30/20 Range/Units 11:00 SARS-CoV-2 RNA (DREW) Positive H (NEGATIVE) Departure - Departure Time of Disposition: 12:04 Disposition: Home, Self-Care 01 Condition: Good Clinical Impression: COVID-19 - Discharge Information Referrals: Ara Ross MD [Primary Care Provider] - - Problem List & Annotations (1) COVID-19 SNOMED Code(s): 350312464 Code(s): U07.1 - COVID-19 Status: Acute Current Visit: Yes - Problem List Review Problem List Initiated/Reviewed/Updated: Yes - My Orders Last 24 Hours: My Active Orders 09/30/20 10:41 BASIC METABOLIC PANEL,BMP [CHEM] Stat CBC WITH AUTO DIFF [HEME] Stat 09/30/20 10:42 TROPONIN I [CHEM] Stat UA W/MICROSCOPIC [URIN] Stat - Assessment/Plan Last 24 Hours: My Active Orders 09/30/20 10:41 BASIC METABOLIC PANEL,BMP [CHEM] Stat CBC WITH AUTO DIFF [HEME] Stat 09/30/20 10:42 TROPONIN I [CHEM] Stat UA W/MICROSCOPIC [URIN] Stat Plan: DC home. Information given for quarantine.
== END 2020-09-30 12:15 | disposition home or self-care (01) ==
LOC: FB.ED 10:15
DX: U07.1 COVID-19 (principal); I10 Essential (primary) hypertension; Z90.49 Acquired absence of other specified parts of digestive tract; Z79.82 Long term (current) use of aspirin; Z79.899 Other long term (current) drug therapy
CPT/HCPCS: 99284; U0002

== ENCOUNTER 2021-12-20 11:06 | Emergency (ER) | payer MEDICARE | END 2021-12-20 13:15 | disposition home or self-care (01) | LOC: FB.ED 11:06 → SUPCPDRO 11:06 → FB.ED 13:15 | DX: S01.81XA Laceration without foreign body of other part of head, initial encounter (principal); I10 Essential (primary) hypertension; Z79.82 Long term (current) use of aspirin; Z79.899 Other long term (current) drug therapy; W01.198A Fall on same level from slipping, tripping and stumbling with subsequent striking against other object, initial encounter | CPT/HCPCS: 70450; 99282; 99283 ==